=== PATIENT | female | born 2000 | race Caucasian/White ===

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

== ENCOUNTER 2023-05-29 07:46 | Emergency (ER) | payer BC, OTHER, MEDICAID ==
[~2023-05-29] VITALS: Ht 167.6 cm; Wt 69.3 kg
[~2023-05-29 07:46] MED LIST changes: +ACET1TAB55 PO; -NORG1TAB4 PO; +NORG1TAB40 PO; +TRAM50TA2 PO
[2023-05-29] MEDS ORDERED: M-NA1TAB (08:05)
[2023-05-29] MEDS ORDERED: SERT50TA29 (08:05)
[2023-05-29] MEDS ORDERED: NS 1,000 ML IV ONE (08:40)
[2023-05-29] MEDS ORDERED: ONDANSETRON 4MG 2ML VIAL IV ONE (08:40)
[2023-05-29] MEDS ORDERED: KETOROLAC 30 MG/ML 1ML VIAL IV ONE (08:40)
[2023-05-29 09:11] LABS: BASO % 0.3 % (0.0-1.0); HEMATOCRIT 36.7 % (36.0-47.0); HEMOGLOBIN 12.5 g/dl (12.0-15.5); LYMPH # 0.8 10^3/uL (1.5-5.0); LYMPH % 6.8 % (24.0-44.0); MEAN CORPUSCULAR HEMOGLOBIN 30.4 pg (27.0-33.0); MEAN CORPUSCULAR HGB CONC 34.1 g/dl (32.0-36.5); MEAN CORPUSCULAR VOLUME 89.3 fl (80.0-96.0); MONO # 1.1 10^3/uL (0.0-0.8); MONO % 8.9 % (2.0-8.0); NEUTROPHILS # 9.9 10^3/uL (1.5-8.5); NEUTROPHILS % 83.7 % (36.0-66.0); PLATELET COUNT, AUTOMATED 166 10^3/uL (150-450); RED BLOOD COUNT 4.11 10^6/uL (4.00-5.40); WHITE BLOOD COUNT 11.9 10^3/uL (4.0-10.0)
[2023-05-29 09:27] LABS: LIPASE 29 U/L (12-53)
[2023-05-29 09:29] LABS: ALBUMIN 3.8 G/DL (3.2-5.2); ALKALINE PHOSPHATASE 47 U/L (46-116); ALT/SGPT 15 U/L (7.0-40); AST/SGOT 14 U/L (<34); BILIRUBIN,TOTAL 1.5 MG/DL (0.3-1.2); BLOOD UREA NITROGEN 9 MG/DL (9-23); CALCIUM LEVEL 8.4 MG/DL (8.5-10.1); CARBON DIOXIDE LEVEL 22 MMOL/L (20-31); CHLORIDE LEVEL 108 MMOL/L (98-107); CREATININE FOR GFR 0.56 MG/DL (0.55-1.30); GLUCOSE, FASTING 126 MG/DL (60-100); POTASSIUM SERUM 3.5 MMOL/L (3.5-5.1); SODIUM LEVEL 139 MMOL/L (136-145); TOTAL PROTEIN 6.9 G/DL (5.7-8.2)
[2023-05-29] MEDS ORDERED: ISOVUE-370 76% 100ML VIAL As Ordered ONE (09:59)
[2023-05-29] MEDS ORDERED: PHENAZOPYRIDINE 100 MG TAB PO ONE (10:35)
[2023-05-29] MEDS ORDERED: CIPR500T39 PO (10:37)
[2023-05-29] MEDS ORDERED: NAPR-837 PO (10:38)
[2023-05-29] MEDS ORDERED: PYRI1TAB5 PO (10:38)
[2023-05-29] MEDS ORDERED: ONDA4TAB6 PO (10:39)
[2023-05-29 10:47] VITALS: BP 114/57; TEMP 98.8; O2SAT 98
== END 2023-05-29 11:03 | disposition home or self-care (01) ==
LOC: M ED 09:18
DX: N10 Acute pyelonephritis (principal); B96.20 Unspecified Escherichia coli [E. coli] as the cause of diseases classified elsewhere; R11.10 Vomiting, unspecified; F17.200 Nicotine dependence, unspecified, uncomplicated
CPT/HCPCS: 74177; 76705; 80053; 81001; 83605; 83690; 85025; 87088; 87186; 96361; 96374; 96375; 99284; J1885; J2405; Q9967

== ENCOUNTER 2024-01-10 09:50 | Emergency (ER) | payer BC, OTHER, MEDICAID ==
[~2024-01-10] VITALS: Ht 167.6 cm; Wt 70.1 kg
[~2024-01-10 09:50] MED LIST changes: +CIPR500T39 PO; +M-NA1TAB; +NAPR-837 PO; +ONDA4TAB6 PO; +PYRI1TAB5 PO; +SERT50TA29
[2024-01-10 09:53] VITALS: BP 128/89; TEMP 97.1; O2SAT 98
[2024-01-10] MEDS ORDERED: NITR100C2 (10:05)
[2024-01-10 13:28] LABS: BASO % 0.4 % (0.0-1.0); EOS # 0.1 10^3/uL (0.0-0.5); EOS % 0.7 % (0.0-3.0); HEMATOCRIT 39.3 % (36.0-47.0); HEMOGLOBIN 13.2 g/dl (12.0-15.5); LYMPH # 2.8 10^3/uL (1.5-5.0); LYMPH % 40.3 % (24.0-44.0); MEAN CORPUSCULAR HEMOGLOBIN 29.9 pg (27.0-33.0); MEAN CORPUSCULAR HGB CONC 33.6 g/dl (32.0-36.5); MEAN CORPUSCULAR VOLUME 89.1 fl (80.0-96.0); MONO # 0.5 10^3/uL (0.0-0.8); MONO % 7.8 % (2.0-8.0); NEUTROPHILS # 3.5 10^3/uL (1.5-8.5); NEUTROPHILS % 50.5 % (36.0-66.0); PLATELET COUNT, AUTOMATED 203 10^3/uL (150-450); RED BLOOD COUNT 4.41 10^6/uL (4.00-5.40); WHITE BLOOD COUNT 6.9 10^3/uL (4.0-10.0)
== END 2024-01-10 15:19 | disposition home or self-care (01) ==
LOC: M ED 09:50
DX: M54.50 Low back pain, unspecified (principal); F41.9 Anxiety disorder, unspecified; F32.A Depression, unspecified; F17.290 Nicotine dependence, other tobacco product, uncomplicated; F10.10 Alcohol abuse, uncomplicated; Z79.1 Long term (current) use of non-steroidal anti-inflammatories (NSAID); Z79.899 Other long term (current) drug therapy

== ENCOUNTER → 2024-04-22 | Outpatient (REF) | payer BC, OTHER, MEDICAID ==
[~2024-04-22] MED LIST changes: +NITR100C2; +ONDA-282 PO; -ONDA4TAB6 PO
[2024-04-22 13:23] LABS: APPEARANCE, URINE HAZY (CLEAR); BACTERIA, URINE AUTO NEGATIVE (NEGATIVE); BILIRUBIN, URINE AUTO NEGATIVE (NEGATIVE); BLOOD, URINE BLOOD NEGATIVE (NEGATIVE); COLOR, URINE YELLOW (YELLOW); GLUCOSE, URINE (UA) AUTO NEGATIVE (NEGATIVE); KETONE, URINE AUTO NEGATIVE (NEGATIVE); LEUKOCYTE ESTERASE, URINE AUTO NEGATIVE (NEGATIVE); MUCUS, URINE SMALL (NEGATIVE); NITRITE, URINE AUTO NEGATIVE (NEGATIVE); PROTEIN, URINE AUTO NEGATIVE (NEGATIVE); RBC, URINE AUTO 0 /HPF (0-3); SPECIFIC GRAVITY URINE AUTO 1.023 (1.002-1.035); SQUAMOUS EPITHELIAL CELL UR AU 4 /HPF (0-6); UROBILINOGEN, URINE AUTO 0.2 mg/dL (0.0-2.0); WBC, URINE AUTO 0 /HPF (0-3)
== END ==
LOC: M SMT 12:21
PROVIDERS: ATTEND Specialist
DX: N39.0 Urinary tract infection, site not specified (principal)

== ENCOUNTER 2024-06-14 01:38 | Emergency (ER) | payer BC, MEDICAID, OTHER ==
[~2024-06-14] VITALS: Ht 167.6 cm; Wt 68.2 kg
[2024-06-14 01:39] VITALS: BP 129/86; TEMP 97.3; O2SAT 98
[2024-06-14] MEDS: LIDOCAINE 2% MDV 20ML VIAL SC ONE (04:45)
[2024-06-14] MEDS: NEOSPORIN OINT 0.9 GM PKT TOP ONE (05:22)
[2024-06-14] MEDS: BOOSTRIX VACCINE (TETANUS/DIPHTH/ACEL. PERTUSSIS) 0.5ML SYR IM.IMMUN ONE (05:22)
== END 2024-06-14 05:31 | disposition home or self-care (01) ==
LOC: M ED 01:38
DX: S61.011A Laceration without foreign body of right thumb without damage to nail, initial encounter (principal); Y92.019 Unspecified place in single-family (private) house as the place of occurrence of the external cause; Y93.9 Activity, unspecified; Y99.9 Unspecified external cause status; F10.10 Alcohol abuse, uncomplicated; Z79.1 Long term (current) use of non-steroidal anti-inflammatories (NSAID); Z23 Encounter for immunization; Z79.899 Other long term (current) drug therapy

== ENCOUNTER → 2024-10-02 | Outpatient (REF) | payer BC, MEDICAID | LOC: M LAB REF 16:15 | PROVIDERS: ATTEND Physician Assistant | DX: R30.0 Dysuria (principal) ==

== ENCOUNTER → 2024-10-13 | Outpatient (CLI) | payer BC, MEDICAID | LOC: M PLAIMG 08:35 | PROVIDERS: ATTEND Physician Assistant | DX: J34.89 Other specified disorders of nose and nasal sinuses (principal); J32.0 Chronic maxillary sinusitis ==

== ENCOUNTER → 2024-10-30 | Outpatient (REF) | payer BC, MEDICAID ==
[2024-10-30 19:35] LABS: ALBUMIN 4.1 G/DL (3.2-5.2); ALKALINE PHOSPHATASE 40 U/L (35-104); ALT/SGPT 19 U/L (7.0-40); AST/SGOT 15 U/L (<34); BILIRUBIN,TOTAL 1.6 MG/DL (0.3-1.2); BLOOD UREA NITROGEN 10 MG/DL (9-23); CALCIUM LEVEL 8.8 MG/DL (8.5-10.1); CARBON DIOXIDE LEVEL 22 MMOL/L (20-31); CHLORIDE LEVEL 108 MMOL/L (98-107); CHOLESTEROL LEVEL 130 MG/DL (<200); CHOLESTEROL RISK RATIO 3.25 (<5); CREATININE FOR GFR 0.61 MG/DL (0.55-1.30); GLOMERULAR FILTRATION RATE > 60.0 (>60); GLUCOSE, FASTING 74 MG/DL (60-100); POTASSIUM SERUM 4.1 MMOL/L (3.5-5.1); SODIUM LEVEL 140 MMOL/L (136-145); TOTAL PROTEIN 7.5 G/DL (5.7-8.2); TRIGLYCERIDES LEVEL 130 MG/DL (<150)
[2024-10-30 19:37] LABS: THYROID STIMULATING HORMONE 0.985 uIU/ML (0.55-4.78); TOTAL 25(OH) VITAMIN D 17.8 NG/ML (20.0-100.0)
[2024-10-30 20:01] LABS: HEMOGLOBIN A1c 4.6 % (4.0-6.0)
[2024-10-30 20:03] LABS: HIV 1&2 SCREEN NEGATIVE (NEGATIVE)
[2024-10-30 20:09] LABS: HEPATITIS C VIRUS ABY INDEX 0.02 INDEX (<0.8)
== END ==
LOC: M LAB REF 17:40
PROVIDERS: ATTEND Physician Assistant
DX: Z11.9 Encounter for screening for infectious and parasitic diseases, unspecified (principal); R11.0 Nausea; E55.9 Vitamin D deficiency, unspecified; Z13.220 Encounter for screening for lipoid disorders

== ENCOUNTER → 2025-08-16 | Outpatient (CLI) | payer BC, MEDICAID ==
[2025-08-16 13:55] LABS: ALT/SGPT 16 U/L (7.0-40); AST/SGOT 25 U/L (<34); CALCIUM LEVEL 8.2 MG/DL (8.5-10.1); CARBON DIOXIDE LEVEL 24 MMOL/L (20-31); CHLORIDE LEVEL 106 MMOL/L (98-107); CREATININE FOR GFR 0.59 MG/DL (0.55-1.30); GLOMERULAR FILTRATION RATE > 90.0 (>60); POTASSIUM SERUM 4.2 MMOL/L (3.5-5.1); SODIUM LEVEL 139 MMOL/L (136-145)
== END ==
LOC: M LAB 12:43
PROVIDERS: ATTEND Obstetrics & Gynecology
DX: Z34.83 Encounter for supervision of other normal pregnancy, third trimester (principal)